=== PATIENT | female | born 1970 | race Caucasian/White ===

== ENCOUNTER 2016-12-12 11:32 | Emergency (ER) | payer OTHER ==
[2016-12-12 12:03] VITALS: BP 148/98; PULSE 75; RESP 16; TEMP 98.1; O2SAT 96
--- NOTE | 2016-12-12 13:34 | UCPHY ---
H & P Time Seen by Provider: 12/12/16 13:05 Patient Type: Established HPI/ROS: CHIEF COMPLAINT: Left ear pain HISTORY OF PRESENT ILLNESS: The patient is a 46-year-old female who has had URI symptoms for the past week. She has had nasal congestion and a mild cough. On Tuesday she developed left ear pain. She has had some slight brownish colored discharge on her pillow when she wakes up the morning from her left ear. No bloody d/c. She has states she has had a fever "but it never went above 100." Patient has no chest pain. No abdominal pain. No nausea or vomiting. REVIEW OF SYSTEMS: My complete review of systems is negative except as mentioned in the HPI. Past Medical/Surgical History: Includes remote pneumothorax Past surgical history: Noncontributory Social history: The patient does not smoke Smoking Status: Never smoked Physical Exam: Vitals noted GENERAL: Well-appearing, in no acute distress, alert. HEENT: Eyes normal to inspection, normal pharynx, no signs of dehydration. Patient has contracted left tympanic membrane. There is no perforation. Mild erythema. There is some slight irritation in the external auditory canal with mild erythema. No clavicular tenderness or pain with movement. No mastoid tenderness. The right TM is normal. NECK: No thyromegaly, no lymphadenopathy, supple. RESPIRATORY: Clear to auscultation bilaterally, no rales, rhonchi or wheezing. CVS: Regular rate and rhythm, no rubs, murmurs, or gallops. ABDOMEN: Soft, nontender, nondistended, no organomegaly. BACK: Normal to inspection, no CVA tenderness. SKIN: Normal color, no rash, warm, dry. No pallor. EXTREMITIES: Normal. NEURO/PSYCH: Alert and oriented, normal mood and affect, normal motor sensory exam. No obvious cranial nerve deficit. Constitutional: Initial Vital Signs Temperature (C) 36.7 C 12/12/16 11:56 Heart Rate 75 12/12/16 11:56 Respiratory Rate 16 12/12/16 11:56 Blood Pressure 148/98 H 12/12/16 11:56 O2 Sat (%) 96 12/12/16 11:56 O2 Delivery Mode Room Air Allergies/Adverse Reactions: Cephalosporins Allergy (Verified 05/21/16 15:32) Home Medications: Medication Instructions Recorded AZITHROMYCIN [Z-PACK] 250 mg PO DAILY #1 packet 12/12/16 Neomy Sulf/Polymyx B Sulf/Hc 4 drops OT TID 3 Days 12/12/16 [Cortisporin Otic Suspension] Medical Decision Making ED Course/Re-evaluation: In urgent care discussed possible etiologies with the patient. I answered all her questions. The patient will be given azithromycin for her otitis media. She states she has an allergy to cephalosporins. Patient will also be treated with Cortisporin drops for her irritated external canal. She is given warnings prior to leaving. She will return with worsening symptoms. She was instructed to place nothing in her ear accept the medications prescribed. Differential Diagnosis: My differential includes but is not limited to otitis media, otitis externa, malignant otitis, cellulitis, meningitis, pneumonia, sinusitis, bronchitis, UR Departure - Departure Disposition: Home, Routine, Self-Care Clinical Impression: Otitis media Qualifiers: Otitis media type: serous Laterality: left Chronicity: acute Recurrence: not specified as recurrent Qualified Code(s): H65.02 - Acute serous otitis media, left ear Otitis externa Qualifiers: Otitis externa type: other infective Condition: Good Instructions: Barotitis Media (ED), Otitis Externa (ED) Additional Instructions: Return with increasing pain, fever, redness surrounding her ear, pain with your movement, neck stiffness or any other concerns. Referrals: Katarina Chaney MD [Medical Doctor] - As per Instructions Prescriptions: AZITHROMYCIN [Z-PACK] 250 mg PO DAILY #1 packet Neomy Sulf/Polymyx B Sulf/Hc [Cortisporin Otic Suspension] 4 drops OT TID 3 Days - PQRS PQRS Measurement: My PQRS negative my PQRS negative my PQRS negative my PQRS negative 134: Depression screening and followup, PRIME DUKES-PHQ2 (12 years and older) Over the last 2 weeks, how often have you been bothered by any of the following problems? 1. Feeling down, depressed, or hopeless? 2. Little interest or pleasure in doing things? Patient answered no to both 1 and 2 130: Documentation of medications. Reviewed all patient medications, doses, route and frequency. 226: Do you smoke? No.
== END 2016-12-12 13:42 | disposition home or self-care (01) ==
LOC: CED 11:32
DX: H65.02 Acute serous otitis media, left ear (principal)
CPT/HCPCS: 99214-PO; G0463-PO